=== PATIENT | female | born 1955 | race Caucasian/White ===

== ENCOUNTER 2020-12-03 17:29 | Inpatient (IN) ==
[2020-12-04] MEDS ORDERED: Dextrose Gel 15 GM/37.5 ML TUBE PO PRN ×2 (15:22)
[2020-12-04] MEDS ORDERED: *HR* Dextrose 50 % in Water (Vial) 50 ML VIAL IVP PRN (15:22)
[2020-12-04] MEDS ORDERED: D5% in Water 1,000 ML IVC PRN (15:22)
[2020-12-04] MEDS: Insulin LISPRO 300 UNITS/3 ML VIAL SUBQ SCH ×2 (16:37→20:58)
[2020-12-04] MEDS: *HR* Metformin 850 MG TABLET PO SCH (16:58)
[2020-12-04] MEDS: carvediloL 6.25 MG TABLET PO SCH (16:58)
[2020-12-04] MEDS: amLODIPine 5 MG TABLET PO SCH (17:00)
[2020-12-04] MEDS: Apixaban 5 MG TABLET PO SCH (20:58)
[2020-12-05 07:08] LABS: Basophils # 0.1 K/mcL (0.0-0.2); Basophils % 0.6 %; Eosinophils # 0.3 K/mcL (0.0-0.6); Eosinophils % 2.8 %; Hematocrit 36.4 % (35.3-44.9); Hemoglobin 11.8 g/dL (11.5-15.4); Immature Granulocytes % 0.2 % (0-4); Lymphocytes # 2.6 K/mcL (0.6-4.6); Mean Corpuscular HGB Conc 32.4 g/dL (31.6-35.5); Mean Corpuscular Hemoglobin 30.4 pg (28.0-33.3); Mean Corpuscular Volume 93.8 fL (83.0-100.0); Monocytes # 0.7 K/mcL (0.0-1.3); Neutrophils # 5.6 K/mcL (1.6-8.9); Platelet Count 226 K/mcL (140-400); Red Blood Count 3.88 M/mcL (3.82-4.97); Red Cell Distribution Width 12.5 % (11.5-14.5); Segmented Neutrophils % 60.4 %; White Blood Count 9.3 K/mcL (4.3-11.1)
[2020-12-05 07:21] LABS: Calcium 8.4 mg/dL (8.6-10.3); Potassium 4.7 mEq/L (3.5-5.1)
[2020-12-05] MEDS: Insulin LISPRO 300 UNITS/3 ML VIAL SUBQ SCH ×4 (07:48→20:11)
[2020-12-05] MEDS ORDERED: lisinopriL 20 MG TABLET PO SCH (09:00)
[2020-12-05] MEDS: Apixaban 5 MG TABLET PO SCH ×2 (09:37→20:09)
[2020-12-05] MEDS: *HR* Metformin 850 MG TABLET PO SCH ×2 (09:37→16:32)
[2020-12-05] MEDS: Isosorbide MONOnitrate (24 HR) 30 MG TAB.ER.24H PO SCH (09:37)
[2020-12-05] MEDS: amLODIPine 5 MG TABLET PO SCH (09:38)
[2020-12-05] MEDS: Spironolactone 25 MG TABLET PO SCH (09:38)
[2020-12-05] MEDS: carvediloL 6.25 MG TABLET PO SCH ×2 (09:39→16:31)
[2020-12-05] MEDS: Nicotine 14 MG PATCH.TD24 TD SCH (09:40)
[2020-12-06] MEDS: Nicotine 14 MG PATCH.TD24 TD SCH (10:35)
[2020-12-06] MEDS: *HR* Metformin 850 MG TABLET PO SCH ×2 (10:37→17:59)
[2020-12-06] MEDS: Apixaban 5 MG TABLET PO SCH ×2 (10:37→20:43)
[2020-12-06] MEDS: Isosorbide MONOnitrate (24 HR) 30 MG TAB.ER.24H PO SCH (10:37)
[2020-12-06] MEDS: carvediloL 6.25 MG TABLET PO SCH ×2 (10:37→18:01)
[2020-12-06] MEDS: Spironolactone 25 MG TABLET PO SCH (10:38)
[2020-12-06] MEDS: amLODIPine 5 MG TABLET PO SCH (10:41)
[2020-12-06] MEDS: Insulin LISPRO 300 UNITS/3 ML VIAL SUBQ SCH ×4 (10:42→20:32)
[2020-12-06] MEDS: Melatonin 3 MG TABLET PO PRN (21:42)
[2020-12-07] MEDS: Insulin LISPRO 300 UNITS/3 ML VIAL SUBQ SCH ×4 (07:41→21:21)
[2020-12-07] MEDS: Nicotine 14 MG PATCH.TD24 TD SCH (07:51)
[2020-12-07] MEDS: *HR* Metformin 850 MG TABLET PO SCH ×2 (07:53→16:30)
[2020-12-07] MEDS: Isosorbide MONOnitrate (24 HR) 30 MG TAB.ER.24H PO SCH (07:53)
[2020-12-07] MEDS: amLODIPine 5 MG TABLET PO SCH (07:54)
[2020-12-07] MEDS: carvediloL 6.25 MG TABLET PO SCH ×2 (07:54→16:32)
[2020-12-07] MEDS: Spironolactone 25 MG TABLET PO SCH (07:54)
[2020-12-07] MEDS: Apixaban 5 MG TABLET PO SCH ×2 (07:54→20:12)
[2020-12-07] MEDS: lisinopriL 20 MG TABLET PO SCH (19:00)
[2020-12-07] MEDS: Melatonin 3 MG TABLET PO PRN (20:12)
[2020-12-08 06:30] LABS: Basophils # 0.1 K/mcL (0.0-0.2); Basophils % 0.6 %; Eosinophils # 0.2 K/mcL (0.0-0.6); Eosinophils % 2.7 %; Hematocrit 36.5 % (35.3-44.9); Hemoglobin 11.7 g/dL (11.5-15.4); Immature Granulocytes % 0.4 % (0-4); Lymphocytes # 2.4 K/mcL (0.6-4.6); Lymphocytes % 29.2 %; Mean Corpuscular HGB Conc 32.1 g/dL (31.6-35.5); Mean Corpuscular Volume 93.6 fL (83.0-100.0); Mean Platelet Volume 12.9 fL (9.4-12.4); Monocytes # 0.7 K/mcL (0.0-1.3); Monocytes % 8.4 %; Neutrophils # 4.7 K/mcL (1.6-8.9); Platelet Count 237 K/mcL (140-400); Red Cell Distribution Width 12.3 % (11.5-14.5); Segmented Neutrophils % 58.7 %; White Blood Count 8.1 K/mcL (4.3-11.1)
[2020-12-08 06:51] LABS: Calcium 8.5 mg/dL (8.6-10.3); Potassium 4.7 mEq/L (3.5-5.1)
[2020-12-08 06:54] VITALS: BP 163/61
[2020-12-08] MEDS: Insulin LISPRO 300 UNITS/3 ML VIAL SUBQ SCH ×2 (08:13→11:35)
[2020-12-08] MEDS: carvediloL 6.25 MG TABLET PO SCH (08:51)
[2020-12-08] MEDS: lisinopriL 20 MG TABLET PO SCH (09:26)
[2020-12-08] MEDS: Spironolactone 25 MG TABLET PO SCH (09:26)
[2020-12-08] MEDS: Apixaban 5 MG TABLET PO SCH (09:26)
[2020-12-08] MEDS: Nicotine 14 MG PATCH.TD24 TD SCH (09:26)
[2020-12-08] MEDS: Isosorbide MONOnitrate (24 HR) 30 MG TAB.ER.24H PO SCH (09:26)
[2020-12-08] MEDS: amLODIPine 5 MG TABLET PO SCH (09:26)
[2020-12-08] MEDS: *HR* Metformin 850 MG TABLET PO SCH (09:26)
== END 2020-12-08 16:05 | disposition home health service (06) | DRG 56 ==
LOC: INPPIK 12-04 14:54
PROVIDERS: ADMIT Family Medicine; ATTEND Family Medicine